=== PATIENT | female | born 1995 | race African-American/Black ===

== ENCOUNTER 2017-09-13 09:29 | Emergency (ER) | payer SELFPAY ==
[~2017-09-13] VITALS: Ht 177.8 cm; Wt 150.0 kg
[2017-09-13 09:33] VITALS: BP 155/62; PULSE 62; RESP 16; TEMP 98.4; O2SAT 100
[2017-09-13] MEDS ORDERED: TRAM50 PO (09:56)
[2017-09-13] MEDS ORDERED: AUGM875T3 PO (09:56)
--- NOTE | 2017-09-13 10:01 | PD ---
HPI . Abscess Chief Complaint: Skin Problem Time Seen by Provider: 09:37 Travel History International Travel<30 days: No Contact w/Intl Traveler<30days: No Traveled to known affect area: No History of Present Illness HPI Patient presents with chief complaint of an abscess just to the right of her anus. Onset was about 4-5 days ago. She states it was very small at that time. It became much larger yesterday and then ruptured today. Maximum pain level was 9/10. Her symptoms are improved following the spontaneous drainage. No associated symptoms such as fever or nausea/vomiting. No previous similar history. No significant chronic medical conditions. PFSH Past Medical History Medical History: Denies Significant Hx ?: Not Past Surgical History Surgical History: No Previous Surgery Social History Alcohol Use: No Tobacco Use: No Substance Use: Yes (MARIJUANA) Allergies-Medications (Allergen,Severity, Reaction): Coded Allergies: No Known Allergies (Unverified , 09/13/17) Reported Meds & Prescriptions Reported Meds & Active Scripts Active Ultram (Tramadol HCl) 50 Mg Tab 50 Mg PO Q4H PRN Augmentin (Amoxicillin-Clavulanate) 875-125 Mg Tab 1 Tab PO BID Review of Systems Except as stated in HPI: all other systems reviewed are Neg Physical Exam Narrative GENERAL: Awake and alert and in no acute distress. SKIN: Warm and dry. Spontaneously ruptured right perirectal abscess which appears to be adequately draining. The surrounding skin is not red or hot. HEAD: Normocephalic/atraumatic. EYES: Pupils are equal. Extraocular movements are intact. NECK: Normal range of motion. RESPIRATORY: Nonlabored respirations. MUSCULOSKELETAL: Atraumatic. NEUROLOGICAL: Nonfocal. PSYCHIATRIC: Appropriate mood and affect. Data Data Last Documented VS Vital Signs Date Time Temp Pulse Resp B/P (MAP) Pulse Ox O2 Delivery O2 Flow Rate FiO2 09/13/17 09:33 98.4 62 16 155/62 (93) 100 Orders Orders Ed Discharge Order (09/13/17 09:56) [facility] Medical Decision Making Medical Screen Exam Complete: Yes Emergency Medical Condition: Yes Differential Diagnosis My differential diagnosis closed but is not limited to abscess, cyst, lipoma Narrative Course This patient presents with a right perirectal abscess. It spontaneously drained this morning. The wound is now wide open and draining. It does not need to be lanced. I queried up to date regarding the appropriate antibiotic for perirectal abscess. It suggest either Augmentin or the combination of Cipro and Flagyl. I will discharge her to home with a prescription for Augmentin. I have also given her prescription for Ultram for pain. She has been instructed to soak in a warm tub of water several times a day until the drainage completely subsides. Diagnosis Primary Impression: Perirectal abscess Patient Instructions: General Instructions Departure Forms: Tests/Procedures Additional Instructions: Sit in a warm tub of water several times per day until it has completely stopped draining. Scripts Tramadol (Ultram) 50 Mg Tab 50 MG PO Q4H Y for PAIN, #10 TAB 0 Refills Prov: Pratima Siddiqui MD 09/13/17 Amoxicillin-Clavulanate (Augmentin) 875-125 Mg Tab 1 TAB PO BID for Infection, #10 TAB 0 Refills Prov: Pratima Siddiqui MD 09/13/17 Disposition: 01 DISCHARGE HOME Condition: Stable Pratima Siddiqui MD Sep 13, 2017 10:01
== END 2017-09-13 10:09 | disposition home or self-care (01) ==
LOC: NEPD 09:29
DX: K61.1 Rectal abscess (principal); F12.90 Cannabis use, unspecified, uncomplicated
CPT/HCPCS: 99283